=== PATIENT | female | born 1960 | race Caucasian/White ===

== ENCOUNTER → 2018-07-15 | Outpatient (CLI) | payer OTHER ==
--- NOTE | 2018-07-15 15:53 | REP ---
C T IACs without contrast History: Right otitis The right internal auditory canal, cochlea, vestibule and semicircular canals are normal in appearance. The ossicles are normal in configuration and position. There is no carotid canal or jugular bulb dehiscence. There is complete opacification of the right middle ear cavity and mastoid air cells. Soft tissue density completely surrounds the ossicles. There is retraction of the right tympanic membrane. The scutum is intact. There are areas of dehiscence of the tegmen. There is no bone erosion. The patient is status post left mastoidectomy. Soft tissue density is present at the mastoidectomy site, in the residual middle ear cavity and mastoid air cells. The soft tissue density almost completely surrounds the ossicles. There is partial erosion of the malleus and incus. The scutum is not seen. The tegmen is intact. The left internal auditory canal, cochlea, vestibule, and semicircular canals are normal in appearance. Minimal mucosal thickening is present in the maxillary sinuses. The nasopharynx is normal in appearance. Impression 1. There is complete opacification of the right middle ear cavity and mastoid air cells. This may represent otitis or the possibility of a cholesteatoma cannot be excluded. 2. The patient is status post left mastoidectomy. Electronically Signed by Edi Coffey MD 07/15/2018 03:44 P
== END ==
LOC: M RAD 15:08
PROVIDERS: ATTEND Otolaryngology
DX: H65.21 Chronic serous otitis media, right ear (principal)

== ENCOUNTER 2018-10-14 07:29 | Day surgery (SDC) | payer OTHER ==
[~2018-10-14] VITALS: Ht 160 cm; Wt 104.3 kg
[~2018-10-14 07:29] MED LIST: ALLO100T PO; ASPI1TAB PO; DRIS50003 PO; LEVO125T4 PO; LISI20TA3 PO; METF500T13 PO; PANT40TA3 PO; SIMV10TA2 PO
[2018-10-14] MEDS ORDERED: ROCURONIUM BROMIDE 50 MG/5 ML VIAL As Ordered ONE ×2 (08:19→10:44)
[2018-10-14] MEDS ORDERED: PROPOFOL 200 MG/20 ML VIAL As Ordered ONE (08:19)
[2018-10-14] MEDS ORDERED: LIDOCAINE 2% INJ 100 MG/5 ML SDV (FOR ANES.) As Ordered ONE (08:19)
[2018-10-14] MEDS ORDERED: fentaNYL 250 MCG/5 ML INJECTION (J3010) As Ordered ONE (08:19)
[2018-10-14] MEDS ORDERED: MIDAZOLAM INJ 2 MG/2 ML VIAL (J2250) As Ordered ONE (08:20)
[2018-10-14] MEDS ORDERED: CIPRODEX OTIC SUSP 7.5ML As Ordered ONE (09:42)
[2018-10-14] MEDS ORDERED: LIDOCAINE W/EPINEPHRINE 1% 20ML VIAL As Ordered ONE (09:42)
[2018-10-14] MEDS ORDERED: ONDANSETRON 4MG/2ML VIAL (J2405) As Ordered ONE (10:44)
[2018-10-14] MEDS ORDERED: HYDROmorphone HCL 2 MG/ML 1ML VIAL (J1170) As Ordered ONE (11:03)
[2018-10-14] MEDS ORDERED: EPINEPHrine 1MG/ML INJ 30ML MD-VIAL As Ordered ONE (11:15)
[2018-10-14] MEDS ORDERED: PHENYLEPHRINE INJ 10MG/ML VIAL (J2370) As Ordered ONE (11:19)
[2018-10-14] MEDS ORDERED: LR 1,000 ML IV SCH ×2 (12:30→13:00)
[2018-10-14] MEDS ORDERED: ACETAMINOPH W/CODEINE #3 TAB UD PO PRN (12:45)
[2018-10-14] MEDS ORDERED: PERCOCET 5MG/325MG TAB PO PRN (13:00)
[2018-10-14] MEDS ORDERED: ONDANSETRON 4MG/2ML VIAL (J2405) IV PRN (13:00)
[2018-10-14] MEDS ORDERED: fentaNYL 100 MCG/2 ML INJECTION (J3010) IV PRN (13:00)
[2018-10-14] MEDS ORDERED: SUGAMMADEX SODIUM 500 MG/5 ML VIAL (BRIDION) As Ordered ONE (13:37)
[2018-10-14] MEDS ORDERED: diphenhydrAMINE INJ 50MG/ML VIAL (J1200) As Ordered ONE ×2 (16:18→18:02)
[2018-10-14] MEDS ORDERED: diphenhydrAMINE INJ 50MG/ML VIAL (J1200) IV PRN (16:45)
[2018-10-14] MEDS ORDERED: diphenhydrAMINE INJ 50MG/ML VIAL (J1200) IV SCH (18:15)
[2018-10-14 18:38] VITALS: BP 133/75
--- NOTE | 2018-10-15 09:49 | RO ---
DATE OF PROCEDURE: 10/14/2018 PREPROCEDURE DIAGNOSIS: Chronic right otitis media. POSTPROCEDURE DIAGNOSIS: Chronic right otitis media. PROCEDURE: Right tympanomastoidectomy. 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 SURGEON: Carloz Limon MD [employer]: ANESTHESIA: DESCRIPTION OF PROCEDURE: Under general anesthesia with the patient intubated, the patient was prepped and draped in the usual manner. I cleaned the ear with Betadine and saline. I infiltrated the . I made a posterior tympanotomy incision and radial incision. I made a postauricular incision during the dissection. Then I dissected into the middle ear space and lifting the drum and the above findings were seen. Using blunt dissection, I dissected the granuloma free within the middle ear space. I removed with forceps. There appeared to be some more in the mastoid so I made elevation of the periosteum and drilled down into the mastoid, which was sclerotic but there was a granuloma in the mastoid cavity, which I removed as well. Once this was removed, I cleaned the area. The drum was returned to its original position and rotated in so there was no perforation. I then placed the ear canal back in its original position and put in iodoform gauze and then closed the posterior incision with #3-0 chromic and #3-0 Prolene suture. The patient tolerated the procedure well. Less than 20 mL estimated blood loss. The patient was extubated and transferred to the recovery room in excellent condition.
== END 2018-10-14 18:38 | disposition home or self-care (01) ==
LOC: M SDC 07:29
PROVIDERS: ATTEND Otolaryngology
DX: H65.491 Other chronic nonsuppurative otitis media, right ear (principal); E11.9 Type 2 diabetes mellitus without complications; G47.30 Sleep apnea, unspecified; I10 Essential (primary) hypertension; E78.5 Hyperlipidemia, unspecified; M10.9 Gout, unspecified; Z79.82 Long term (current) use of aspirin; Z79.84 Long term (current) use of oral hypoglycemic drugs; Z79.899 Other long term (current) drug therapy; E03.9 Hypothyroidism, unspecified; K21.9 Gastro-esophageal reflux disease without esophagitis; Z87.891 Personal history of nicotine dependence
CPT/HCPCS: 69641; 88305; J1170; J1200; J2250; J2370; J2405; J3010

== ENCOUNTER → 2021-03-10 | Outpatient (REF) | payer MEDICARE, OTHER ==
[~2021-03-10] MED LIST changes: -ASPI1TAB PO; +ASPI81TA26 PO; +LISI20TA20 PO; -LISI20TA3 PO; +PANT40TA29 PO; -PANT40TA3 PO; -SIMV10TA2 PO; +SIMV10TA21 PO
== END ==
LOC: M LAB REF 18:53
PROVIDERS: ATTEND Physician Assistant
DX: C44.41 Basal cell carcinoma of skin of scalp and neck (principal)

== ENCOUNTER → 2023-02-08 | Outpatient (CLI) | payer MEDICARE ==
[~2023-02-08] MED LIST changes: -LISI20TA20 PO; +LISI20TA37 PO
== END ==
LOC: M PLAIMG 11:23
PROVIDERS: ATTEND Physician Assistant
DX: H70.11 Chronic mastoiditis, right ear (principal)

== ENCOUNTER → 2024-04-10 | Outpatient (REF) | payer MEDICARE | LOC: M SFHCDERM 17:46 | PROVIDERS: ATTEND Nurse Practitioner Family | DX: L85.1 Acquired keratosis [keratoderma] palmaris et plantaris (principal) ==